=== PATIENT | male | born 1955 | race Two or more races ===

== ENCOUNTER 2020-12-04 20:28 | Emergency (ER) | payer MEDICARE, MEDICAID ==
[~2020-12-04] VITALS: Ht 167.6 cm; Wt 90.7 kg
[2020-12-04 20:39] VITALS: BP 170/108
[2020-12-04 21:57] LABS: Alcohol, Urine < 3.0 mg/dL (0-10); Amphetamine Screen, Urine NEGATIVE (NEGATIVE); Barbiturate Scree,Urine NEGATIVE (NEGATIVE); Benzodiazephine Screen, Urine NEGATIVE (NEGATIVE); Cannabinoid Screen, Urine NEGATIVE (NEGATIVE); Cocaine Screen, Urine NEGATIVE (NEGATIVE); Opiate Scree,Urine NEGATIVE (NEGATIVE); Phencyclidine Screen, Urine NEGATIVE (NEGATIVE)
== END 2020-12-04 21:22 | disposition left against medical advice (07) ==
LOC: ER 20:28
DX: Z01.818 Encounter for other preprocedural examination (principal); F15.10 Other stimulant abuse, uncomplicated; Z53.21 Procedure and treatment not carried out due to patient leaving prior to being seen by health care provider
CPT/HCPCS: 80307

== ENCOUNTER 2021-12-21 12:43 | Emergency (ER) | payer OTHER, MEDICAID ==
[~2021-12-21] VITALS: Ht 172.7 cm; Wt 93.0 kg
[2021-12-21 12:50] VITALS: BP 137/101
[2021-12-21] MEDS ORDERED: TRAM-297 PO (14:15)
[2021-12-21] MEDS ORDERED: traMADol HCL 50 MG TAB PO ONE (14:25)
== END 2021-12-21 17:15 | disposition home or self-care (01) ==
LOC: ER 12:43
DX: M25.562 Pain in left knee (principal); E11.9 Type 2 diabetes mellitus without complications; X58.XXXA Exposure to other specified factors, initial encounter; Y93.89 Activity, other specified; Y92.89 Other specified places as the place of occurrence of the external cause; Y99.8 Other external cause status
CPT/HCPCS: 73562

== ENCOUNTER 2022-05-20 21:59 | Emergency (ER) | payer OTHER, MEDICAID ==
[~2022-05-20] VITALS: Ht 170.2 cm; Wt 87.6 kg
[~2022-05-20 21:59] MED LIST: TRAM-297 PO
[2022-05-20 23:44] LABS: Basophils # (auto) 0.1 10 ^3/uL (0-0.2); Basophils % (auto) 0.8 % (0.0-2.0); Eosinophils # (auto) 0.1 10 ^3/uL (0-0.8); Eosinophils % (auto) 1.6 % (0.0-7.0); Hematocrit 44.7 % (41.0-53.0); Hemoglobin 15.5 g/dL (13.5-17.5); Lymphocytes # (auto) 3.3 10 ^3/uL (0.4-5.4); Lymphocytes % (auto) 42.3 % (10.0-50.0); Mean Corpuscular Hemoglobin 31.9 pg (28.0-32.0); Mean Corpuscular Hgb Conc. 34.6 g/dL (32.0-36.0); Mean Corpuscular Volume 92.4 fL (80.0-100.0); Monocytes # (auto) 0.6 10 ^3/uL (0-1.3); Monocytes % (auto) 8.1 % (0.0-12.0); Neutrophils # (auto) 3.6 10 ^3/uL (1.6-8.6); Neutrophils % (auto) 47.2 % (37.0-80.0); Nucleated Red Blood Cells % 0.8 %; Red Blood Cells 4.84 10^6/uL (4.5-5.90); White Blood Cell 7.7 10^3/uL (4.4-10.8)
[2022-05-21 01:09] LABS: Albumin 3.7 g/dL (3.4-5.0); BUN/Creatinine Ratio 24.7; Calcium 8.8 mg/dL (8.5-10.1); Potassium 4.4 mmol/L (3.5-5.1)
[2022-05-21 01:11] LABS: Bilirubin, Total 0.3 mg/dL (0.2-1.0); Total Protein 7.1 g/dL (6.4-8.2)
[2022-05-21 03:30] VITALS: BP 166/100
== END 2022-05-21 04:47 | disposition home or self-care (01) ==
LOC: ER 21:59
DX: R07.89 Other chest pain (principal); E11.9 Type 2 diabetes mellitus without complications; Z79.899 Other long term (current) drug therapy
CPT/HCPCS: 36415; 71045; 80053; 83880; 84484; 85025; 93005